=== PATIENT | male | born 1985 | race African-American/Black ===

== ENCOUNTER 2021-05-23 12:03 | Emergency (ER) | payer OTHER ==
[2021-05-23] MEDS ORDERED: Ketorolac 60 MG/2 ML SDV IM ONE (12:32)
--- NOTE | 2021-05-23 13:27 | EDM.PDOC ---
ED HPI GENERAL MEDICAL PROBLEM - General Chief Complaint: Back Pain or Injury Stated Complaint: back pain Time Seen by Provider: 05/23/21 12:19 Source of Information: Reports: Patient History Limitations: Reports: No Limitations - History of Present Illness INITIAL COMMENTS - FREE TEXT/NARRATIVE: 35-year-old male presents the emergency department with complaints of low back pain on the left side with pain in his left buttock radiating into his left thigh with ambulation. Patient states that he was shoveling at work on Monday and woke morning with left low back pain. He states he went to the chiropractor and had an adjustment done and thought he felt better. However yesterday and today pain has increased to his left lower back and buttock area. He states when he lays flat and sleeps he has increased pain to the left lateral thigh area. He denies any previous injury to his back. He has been taking Tylenol and ibuprofen for the discomfort however this is not helped. He has also been using ice and heat which has not been effective. Left Lower Back Pain Score (Numeric/FACES): 10 - Related Data Allergies Allergy/AdvReac Type Severity Reaction Status Date / Time No Known Allergies Allergy Verified 05/23/21 12:12 Home Meds: Home Meds Diclofenac Sodium [Voltaren] 75 mg PO BIDMEALS #16 tab.cr 05/23/21 [Rx] Hydrocodone/Acetaminophen [HYDROcodone-Acetaminophen 5-325 MG] 1 each PO Q6H PRN #10 tab 05/23/21 [Rx] Pantoprazole Sodium [Protonix] 40 mg PO DAILY #10 tablet. 05/23/21 [Rx] predniSONE [Prednisone] 20 mg PO ASDIRECTED #15 tablet 05/23/21 [Rx] Past Medical History - Infectious Disease History Infectious Disease History: Reports: Chicken Pox Social & Family History - Tobacco Use Tobacco Use Status *Q: Never Tobacco User Second Hand Smoke Exposure: No - Caffeine Use Caffeine Use: Reports: Soda - Recreational Drug Use Recreational Drug Use: No ED ROS GENERAL - Review of Systems Review Of Systems: Comprehensive ROS is negative, except as noted in HPI. ED EXAM,LOWER BACK PAIN/INJURY - Physical Exam Exam: See Below Exam Limited By: No Limitations General Appearance: Alert, WD/WN, No Apparent Distress Ears: Normal External Exam, Hearing Grossly Normal Nose: Normal Inspection Throat/Mouth: Normal Inspection, Normal Lips, Normal Voice, No Airway Compromise Head: Atraumatic, Normocephalic Neck: Normal Inspection, Supple, Non-Tender, Full Range of Motion Respiratory/Chest: No Respiratory Distress, Lungs Clear, No Accessory Muscle Use Cardiovascular: Normal Peripheral Pulses, Regular Rate, Rhythm GI/Abdominal: No Distention (Male) Exam: Deferred Rectal (Males) Exam: Deferred Back Exam: Normal Inspection, Full Range of Motion, Paraspinal Tenderness (Left lumbar). No: Vertebral Tenderness Extremities: Normal Inspection, Normal Range of Motion, No Pedal Edema, Normal Capillary Refill. No: Non-Tender (Left buttock) Neurological: Alert, Normal Mood/Affect, Oriented x 3 Psychiatric: Normal Affect, Normal Mood Skin Exam: Warm, Dry, Intact, Normal Color, No Rash Lymphatic: No Adenopathy Course - Vital Signs Text/Narrative:: As stated above, patient presents with low back pain primarily on the left side with pain into the buttock and radiation into the left lateral thigh. Physical exam reveals an awake alert male. Patient notes increased discomfort to his left lower back with flexion of the right leg with internal rotation and external rotation. Also notes pain to the left low back with straight leg lift on the right leg. Patient is able to tolerate flexion of the left hip with medial and lateral rotation however when he places his left leg flat on the bed and performs a straight leg left has severe pain to the low back and buttock area. No spinal tenderness is appreciated. He does have paraspinal tenderness noted to the lumbar area on the left side. Will medicate the patient with Toradol 60 mg IM. Will also obtain x-rays of the lumbar spine. Last Recorded V/S: Last Vital Signs Temp 98.0 F 05/23/21 12:10 Pulse 68 05/23/21 12:10 Resp 16 05/23/21 12:10 BP 142/95 H 05/23/21 12:10 Pulse Ox 97 05/23/21 12:10 - Orders/Labs/Meds Orders: Active Orders 24 hr Category Date Time Status Lumbar Spine 2 or 3V [CR] Stat Exams 05/23/21 12:33 Taken Meds: Medications Discontinued Medications Generic Name Dose Route Start Last Admin Trade Name Freq PRN Reason Stop Dose Admin Ketorolac Tromethamine 60 mg 05/23/21 12:32 05/23/21 12:45 Ketorolac 60 Mg/2 Ml Sdv IM 05/23/21 12:33 60 mg ONETIME ONE Administration - Re-Assessments/Exams Free Text/Narrative Re-Assessment/Exam: 05/23/21 13:54 Nothing acute is appreciated on x-ray of lumbar spine. Formal radiologist report is pending. Patient will be discharged to home with a prescription for Voltaren, prednisone, Protonix and hydrocodone. States his low back pain has decreased significantly. Departure - Departure Time of Disposition: 13:27 Disposition: Home, Self-Care 01 Condition: Good Clinical Impression: Low back pain radiating down leg - Discharge Information Prescriptions: Hydrocodone/Acetaminophen [HYDROcodone-Acetaminophen 5-325 MG] 1 each PO Q6H PRN #10 tab PRN Reason: Pain (Moderate 4-6) predniSONE [Prednisone] 20 mg PO ASDIRECTED #15 tablet Pantoprazole Sodium [Protonix] 40 mg PO DAILY #10 tablet. Diclofenac Sodium [Voltaren] 75 mg PO BIDMEALS #16 tab.cr Instructions: Muscle Strain, [id number] Referrals: PCP,None [Primary Care Provider] - Forms: ED Department Discharge, ED Return to Work/School Form Additional Instructions: You were seen in the emergency department today with complaints of low back pain with radiation into your butt and left thigh. Evaluation reveals pain at the SI joint. Likely due to inflammation of the muscle pressing on the nerve. X-rays were completed and did not show any acute injury. While you are in the emergency department you received a dose of inflammatory medication and this did seem to help somewhat. I have sent prescription electronically to [facility]. You will need to take prednisone 20 mg twice daily for 5 days then once daily for 5 days. You will also need to take Voltaren 75 mg twice daily for 8 days. Be sure to take this medication with your breakfast and supper meals. You will need to take Protonix 40 mg daily first thing in the morning. This medication will help to prevent ulcers that can be associated with taking prednisone and Voltaren together. Over the next couple of days you may still notice the discomfort so I have sent a prescription narcotic med ication called hydrocodone to your pharmacy. You may take 1 tab every 6 hours as needed for more severe pain. You should only need to take this for about 2 days time as it generally takes couple days for the prednisone and Voltaren to take effect. Recommend using ice 30 minutes at a time every 3 hours while awake. You may return to work on May 27 but avoid any heavy lifting or twisting and shoveling type of motion as this will aggravate the area. Should your condition worsen or change, do not hesitate returning to the emergency department. Sepsis Event Note (ED) - Evaluation Sepsis Screening Result: No Definite Risk - Focused Exam Vital Signs: Vital Signs Temp Pulse Resp BP Pulse Ox 05/23/21 12:10 98.0 F 68 16 142/95 H 97 - My Orders Last 24 Hours: My Active Orders 05/23/21 12:33 Lumbar Spine 2 or 3V [CR] Stat - Assessment/Plan Last 24 Hours: My Active Orders 05/23/21 12:33 Lumbar Spine 2 or 3V [CR] Stat
--- NOTE | 2021-05-23 14:33 | CR ---
Lumbar spine: AP and lateral views of the lumbar spine were obtained. Comparison: No prior lumbar spine imaging is available. Vertebral body heights and disc spaces are maintained. Pedicles are intact. Visualized transverse and spinous processes are intact. Sacroiliac joints appear within normal limits. Impression: 1. No abnormality is appreciated on 2-view lumbar spine study. Diagnostic code #1
== END 2021-05-23 13:45 | disposition home or self-care (01) ==
LOC: JD.ED 12:03
DX: M54.50 Low back pain, unspecified (principal)
CPT/HCPCS: 72100; 96372; 99283; J1885

== ENCOUNTER 2023-01-30 16:59 | Emergency (ER) | payer BC, OTHER ==
[2023-01-30] MEDS ORDERED: Meclizine 25 MG Tab PO ONE (17:31)
[2023-01-30 18:35] LABS: BASOPHILS ABSOLUTE AUTO 0.06 K/mm3 (0.01-0.08); EOSINOPHILS ABSOLUTE AUTO 0.44 K/mm3 (0.04-0.54); EOSINOPHILS PERCENT AUTO 7.2 (0.8-7.0); HEMATOCRIT 46.4 % (40.1-51.0); HEMOGLOBIN 15.3 gm/dl (13.7-17.5); LYMPHOCYTES PERCENT AUTO 34.2 % (21.8-53.1); MEAN CORPUSCULAR HEMOGLOBIN 28.8 pg (25.7-32.2); MEAN CORPUSCULAR VOLUME 87.2 fl (79.0-92.2); MEAN PLATELET VOLUME 10.6 fl (9.4-12.3); MONOCYTES ABSOLUTE AUTO 0.42 K/mm3 (0.30-0.82); MONOCYTES PERCENT AUTO 6.8 % (5.3-12.2); NEUTROPHILS ABSOLUTE AUTO 3.12 K/mm3 (1.78-5.38); NEUTROPHILS PERCENT AUTO 50.8 % (34.0-67.9); PLATELET COUNT,PLT 285 K/mm3 (163-337); RED BLOOD CELL COUNT 5.32 M/mm3 (4.63-6.08); WHITE BLOOD CELL COUNT,WBC 6.14 K/mm3 (4.23-9.07)
[2023-01-30 19:06] LABS: A/G RATIO 1.1 (1-2); ALBUMIN 3.7 g/dl (3.4-5.0); ANION GAP 13.8 (5-15); BILIRUBIN TOTAL 0.6 mg/dL (0.2-1.0); CALCIUM 8.8 mg/dL (8.5-10.1); EST CRCL DRUG DOSING (CG) 90.38 mL/min; MAGNESIUM 1.7 mg/dL (1.8-2.4); PROTEIN TOTAL,TP 7.2 g/dl (6.4-8.2)
[2023-01-30 19:11] LABS: POTASSIUM,K 3.8 mEq/L (3.5-5.1)
== END 2023-01-30 19:46 | disposition home or self-care (01) ==
LOC: JD.ED 16:59
DX: R42 Dizziness and giddiness (principal); K21.9 Gastro-esophageal reflux disease without esophagitis; Z79.899 Other long term (current) drug therapy
CPT/HCPCS: 36415; 80053; 83735; 84484; 85025; 93005; 99284; A9270

== ENCOUNTER 2024-01-29 15:42 | Emergency (ER) | payer BC ==
[2024-01-29] MEDS: Lidocaine 1% 20 ML MDV INJECT ONE (18:34)
[2024-01-29] MEDS: Diphtheria,Pertussis(Acell),Tetanus Vaccine 0.5 ML Syringe IM ONE (18:35)
[2024-01-29] MEDS: Ibuprofen 800 MG Tab PO ONE (20:00)
[2024-01-29] MEDS: Amoxicillin/Clavulanate K 875-125 MG Tab PO ONE (20:01)
== END 2024-01-29 20:30 | disposition home or self-care (01) ==
LOC: JD.ED 15:42
DX: S71.111A Laceration without foreign body, right thigh, initial encounter (principal); Z23 Encounter for immunization; W26.8XXA Contact with other sharp object(s), not elsewhere classified, initial encounter
CPT/HCPCS: 12006; 90471; 90715; 99282; A9270; 99283; J3490